=== PATIENT | female | born 2000 | race Caucasian/White ===

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

== ENCOUNTER 2018-01-27 15:03 | Emergency (ER) | payer BC | END 2018-01-27 17:07 | disposition home or self-care (01) | LOC: M ED 15:03 | DX: S09.90XA Unspecified injury of head, initial encounter (principal); S10.91XA Abrasion of unspecified part of neck, initial encounter; Y04.8XXA Assault by other bodily force, initial encounter; K58.9 Irritable bowel syndrome, unspecified; Z79.899 Other long term (current) drug therapy | CPT/HCPCS: 70450 ==

== ENCOUNTER → 2018-12-14 | Outpatient (REF) | payer BC ==
[~2018-12-14] MED LIST: CELE10TA PO; LINZ145C; NIKK1TAB
[2018-12-14 16:31] LABS: BASO % 0.3 % (0.0-1.0); EOS % 0.7 % (0.0-3.0); HEMATOCRIT 37.3 % (36.0-47.0); LYMPH # 1.8 10^3/uL (1.5-6.5); LYMPH % 31.6 % (24.0-44.0); MEAN CORPUSCULAR HEMOGLOBIN 27.9 pg (27.0-33.0); MEAN CORPUSCULAR HGB CONC 32.2 g/dl (32.0-36.5); MEAN CORPUSCULAR VOLUME 86.7 fl (80.0-96.0); MONO # 0.5 10^3/uL (0.0-0.8); MONO % 8.1 % (0.0-5.0); NEUTROPHILS # 3.4 10^3/uL (1.8-7.7); NEUTROPHILS % 59.1 % (36.0-66.0); PLATELET COUNT, AUTOMATED 169 10^3/uL (150-450); WHITE BLOOD COUNT 5.8 10^3/uL (4.0-10.0)
[2018-12-14 16:47] LABS: ALBUMIN 3.8 GM/DL (3.2-5.2); ALT/SGPT 32 U/L (12-78); BILIRUBIN,TOTAL 0.4 MG/DL (0.2-1.0); BLOOD UREA NITROGEN 8 MG/DL (7-18); CALCIUM LEVEL 9.4 MG/DL (8.5-10.1); CARBON DIOXIDE LEVEL 27 MEQ/L (21-32); CHLORIDE LEVEL 106 MEQ/L (98-107); CREATININE FOR GFR 0.61 MG/DL (0.55-1.30); FREE T4 1.01 NG/DL (0.78-1.33); GLUCOSE, FASTING 76 MG/DL (70-100); POTASSIUM SERUM 3.9 MEQ/L (3.5-5.1); SODIUM LEVEL 141 MEQ/L (136-145); THYROID STIMULATING HORMONE 0.796 uIU/ML (0.463-3.98); TOTAL PROTEIN 7.1 GM/DL (6.4-8.2)
== END ==
LOC: M SFHCLERA 12:22
PROVIDERS: ATTEND Nurse Practitioner Family
DX: R55 Syncope and collapse (principal)

== ENCOUNTER → 2021-07-26 | Outpatient (REF) | payer BC | LOC: M LAB REF 16:34 | PROVIDERS: ATTEND Physician Assistant Medical | DX: R30.0 Dysuria (principal) ==

== ENCOUNTER → 2022-01-03 | Outpatient (CLI) | payer BC ==
[2022-01-03 16:13] LABS: BASO % 0.5 % (0.0-1.0); EOS % 0.6 % (0.0-3.0); HEMATOCRIT 38.8 % (36.0-47.0); HEMOGLOBIN 12.5 g/dl (12.0-15.5); LYMPH # 1.7 10^3/uL (1.5-5.0); LYMPH % 26.2 % (24.0-44.0); MEAN CORPUSCULAR HGB CONC 32.2 g/dl (32.0-36.5); MONO # 0.5 10^3/uL (0.0-0.8); MONO % 8.5 % (2.0-8.0); NEUTROPHILS # 4.1 10^3/uL (1.5-8.5); NEUTROPHILS % 63.9 % (36.0-66.0); PLATELET COUNT, AUTOMATED 178 10^3/uL (150-450); RED BLOOD COUNT 4.46 10^6/uL (4.00-5.40); WHITE BLOOD COUNT 6.4 10^3/uL (4.0-10.0)
[2022-01-03 20:33] LABS: FREE T4 1.09 NG/DL (0.76-1.46); THYROID STIMULATING HORMONE 1.23 uIU/ML (0.358-3.740)
== END ==
LOC: M WUC 14:09
PROVIDERS: ATTEND Dermatology
DX: L65.9 Nonscarring hair loss, unspecified (principal)

== ENCOUNTER 2023-02-18 01:33 | Emergency (ER) | payer BC ==
[~2023-02-18] VITALS: Ht 172.7 cm; Wt 68.2 kg
[2023-02-18 01:33] VITALS: BP 115/82; TEMP 98.6; O2SAT 98
[2023-02-18 02:26] LABS: BASO % 0.4 % (0.0-1.0); EOS % 0.3 % (0.0-3.0); HEMATOCRIT 38.8 % (36.0-47.0); HEMOGLOBIN 12.5 g/dl (12.0-15.5); LYMPH # 1.7 10^3/uL (1.5-5.0); LYMPH % 24.8 % (24.0-44.0); MEAN CORPUSCULAR HEMOGLOBIN 27.5 pg (27.0-33.0); MEAN CORPUSCULAR HGB CONC 32.2 g/dl (32.0-36.5); MEAN CORPUSCULAR VOLUME 85.3 fl (80.0-96.0); MONO # 0.5 10^3/uL (0.0-0.8); MONO % 7.3 % (2.0-8.0); NEUTROPHILS # 4.6 10^3/uL (1.5-8.5); NEUTROPHILS % 66.9 % (36.0-66.0); PLATELET COUNT, AUTOMATED 185 10^3/uL (150-450); RED BLOOD COUNT 4.55 10^6/uL (4.00-5.40); WHITE BLOOD COUNT 6.8 10^3/uL (4.0-10.0)
[2023-02-18 02:43] LABS: LIPASE 30 U/L (12-53)
[2023-02-18 02:45] LABS: ALBUMIN 3.8 G/DL (3.2-5.2); ALKALINE PHOSPHATASE 46 U/L (46-116); ALT/SGPT 25 U/L (7.0-40); AST/SGOT 15 U/L (<34); BILIRUBIN,DIRECT 0.1 MG/DL (<0.4); BILIRUBIN,TOTAL 0.4 MG/DL (0.3-1.2); BLOOD UREA NITROGEN 8 MG/DL (9-23); CALCIUM LEVEL 9.7 MG/DL (8.5-10.1); CARBON DIOXIDE LEVEL 23 MMOL/L (20-31); CHLORIDE LEVEL 103 MMOL/L (98-107); CREATININE FOR GFR 0.64 MG/DL (0.55-1.30); GLOMERULAR FILTRATION RATE > 60.0 (>60); GLUCOSE, FASTING 93 MG/DL (60-100); POTASSIUM SERUM 3.6 MMOL/L (3.5-5.1); SODIUM LEVEL 138 MMOL/L (136-145); TOTAL PROTEIN 7.5 G/DL (5.7-8.2)
== END 2023-02-18 03:38 | disposition left against medical advice (07) ==
LOC: M ED 01:33
DX: Z53.21 Procedure and treatment not carried out due to patient leaving prior to being seen by health care provider (principal)

== ENCOUNTER → 2023-11-23 | Outpatient (CLI) | payer BC ==
[2023-11-23 15:04] LABS: BASO % 0.4 % (0.0-1.0); EOS % 0.7 % (0.0-3.0); HEMATOCRIT 37.7 % (36.0-47.0); HEMOGLOBIN 12.2 g/dl (12.0-15.5); LYMPH # 2.1 10^3/uL (1.5-5.0); LYMPH % 38.7 % (24.0-44.0); MEAN CORPUSCULAR HEMOGLOBIN 27.9 pg (27.0-33.0); MEAN CORPUSCULAR HGB CONC 32.4 g/dl (32.0-36.5); MEAN CORPUSCULAR VOLUME 86.3 fl (80.0-96.0); MONO # 0.5 10^3/uL (0.0-0.8); MONO % 8.4 % (2.0-8.0); NEUTROPHILS # 2.8 10^3/uL (1.5-8.5); NEUTROPHILS % 51.4 % (36.0-66.0); PLATELET COUNT, AUTOMATED 199 10^3/uL (150-450); RED BLOOD COUNT 4.37 10^6/uL (4.00-5.40); WHITE BLOOD COUNT 5.4 10^3/uL (4.0-10.0)
[2023-11-23 15:37] LABS: ESTRADIOL < 19.0 PG/ML; FERRITIN 11.5 NG/ML (7.3-270.7); FOLATE 14.7 NG/ML (>5.4); FREE T4 1.19 NG/DL (0.89-1.76); THYROID STIMULATING HORMONE 1.239 uIU/ML (0.55-4.78); THYROXINE (T4) 12.1 UG/DL (4.5-10.9); TOTAL 25(OH) VITAMIN D 15.3 NG/ML (20.0-100.0)
[2023-11-23 15:38] LABS: VITAMIN B12 LEVEL 297 PG/ML (211-911)
[2023-11-23 15:45] LABS: ALBUMIN 3.2 G/DL (3.2-5.2); ALKALINE PHOSPHATASE 39 U/L (46-116); ALT/SGPT 22 U/L (7.0-40); AST/SGOT 11 U/L (<34); BILIRUBIN,TOTAL 0.2 MG/DL (0.3-1.2); BLOOD UREA NITROGEN 9 MG/DL (9-23); CALCIUM LEVEL 8.9 MG/DL (8.5-10.1); CARBON DIOXIDE LEVEL 26 MMOL/L (20-31); CHLORIDE LEVEL 110 MMOL/L (98-107); CREATININE FOR GFR 0.67 MG/DL (0.55-1.30); GLOMERULAR FILTRATION RATE > 60.0 (>60); GLUCOSE, FASTING 82 MG/DL (60-100); IRON (FE) 26 UG/DL (50-170); PERCENT SATURATION 5.6 % (13.2-45.0); POTASSIUM SERUM 4.1 MMOL/L (3.5-5.1); SODIUM LEVEL 142 MMOL/L (136-145); TOTAL IRON BINDING CAPACITY 461 UG/DL (250-425); TOTAL PROTEIN 6.3 G/DL (5.7-8.2)
[2023-11-23 15:48] LABS: PROGESTERONE 0.25 NG/ML
[2023-11-23 15:50] LABS: FREE THYROXINE INDEX 2.4 % (1.3-4.8); T UPTAKE 19.9 % (22.5-37.0)
[2023-11-24 17:07] LABS: TESTOSTERONE FREE (DIRECT) 0.5 pg/mL (0.0-4.2)
== END ==
LOC: M WUC 10:33
PROVIDERS: ATTEND Registered Nurse
DX: R53.83 Other fatigue (principal)

== ENCOUNTER → 2025-03-22 | Outpatient (REF) | payer BC | LOC: M LAB REF 18:01 | DX: J02.9 Acute pharyngitis, unspecified (principal) ==

== ENCOUNTER 2025-05-23 19:58 | Emergency (ER) | payer BC ==
[~2025-05-23] VITALS: Ht 172.7 cm; Wt 58.2 kg
[2025-05-23] MEDS ORDERED: LORY1TAB2 PO (20:09)
[2025-05-23] MEDS ORDERED: CITA40TA7 PO (20:09)
[2025-05-23] MEDS: ONDANSETRON 4MG/2ML VIAL IV ONE (21:27)
[2025-05-23] MEDS: NS (Normal Saline) 0.9% 1,000 ML IV ONE (21:28)
[2025-05-23 21:37] LABS: BASO # 0.0 10^3/uL (0.0-0.2); BASO % 0.1 % (0.0-1.0); EOS # 0.0 10^3/uL (0.0-0.5); EOS % 0.0 % (0.0-3.0); LYMPH # 1.0 10^3/uL (1.5-5.0); LYMPH % 6.4 % (24.0-44.0); MONO # 1.3 10^3/uL (0.0-0.8); MONO % 8.0 % (2.0-8.0); NEUTROPHILS # 13.3 10^3/uL (1.5-8.5); NEUTROPHILS % 85.1 % (36.0-66.0); PLATELET COUNT, AUTOMATED 230 10^3/uL (150-450)
[2025-05-23 22:10] LABS: ALT/SGPT 29 U/L (7.0-40); AST/SGOT 24 U/L (<34); CALCIUM LEVEL 9.0 MG/DL (8.5-10.1); CARBON DIOXIDE LEVEL 24 MMOL/L (20-31); CHLORIDE LEVEL 106 MMOL/L (98-107); CREATININE FOR GFR 0.74 MG/DL (0.55-1.30); GLOMERULAR FILTRATION RATE > 90.0 (>60); POTASSIUM SERUM 4.1 MMOL/L (3.5-5.1); SODIUM LEVEL 143 MMOL/L (136-145)
[2025-05-23 22:28] LABS: HCG, SERUM QUALITATIVE NEGATIVE (NEGATIVE)
[2025-05-24] MEDS ORDERED: REGL10TA6 PO (00:03)
[2025-05-24] MEDS ORDERED: ONDA-282 PO (00:03)
[2025-05-24 00:16] VITALS: BP 115/66; TEMP 100.1; O2SAT 100
[2025-05-24] MEDS ORDERED: ONDANSETRON 4MG/2ML VIAL IV ONE (01:00)
== END 2025-05-24 00:20 | disposition home or self-care (01) ==
LOC: M ED 19:58
DX: K52.9 Noninfective gastroenteritis and colitis, unspecified (principal); F32.9 Major depressive disorder, single episode, unspecified; Z79.899 Other long term (current) drug therapy
CPT/HCPCS: 80048; 80076; 83690; 84703; 85025; 87486; 87581; 87633; 87798; 93041; 96361; 96374; 96375; 99284; J2405; J2765

== ENCOUNTER 2025-05-25 16:20 | Observation (INO) | payer BC ==
[~2025-05-25] VITALS: Ht 172.7 cm; Wt 63.6 kg
[~2025-05-25 16:20] MED LIST changes: +CITA40TA7 PO; +LORY1TAB2 PO; +ONDA-282 PO; +REGL10TA6 PO
[2025-05-25] MEDS: NS (Normal Saline) 0.9% 1,000 ML IV ONE (17:06)
[2025-05-25 17:16] LABS: BASO # 0.1 10^3/uL (0.0-0.2); BASO % 0.4 % (0.0-1.0); EOS # 0.0 10^3/uL (0.0-0.5); EOS % 0.1 % (0.0-3.0); LYMPH # 2.0 10^3/uL (1.5-5.0); LYMPH % 15.7 % (24.0-44.0); MONO # 0.9 10^3/uL (0.0-0.8); MONO % 7.0 % (2.0-8.0); NEUTROPHILS # 9.5 10^3/uL (1.5-8.5); NEUTROPHILS % 76.2 % (36.0-66.0); PLATELET COUNT, AUTOMATED 258 10^3/uL (150-450)
[2025-05-25 17:53] LABS: ALT/SGPT 37 U/L (7.0-40); AST/SGOT 28 U/L (<34); CALCIUM LEVEL 8.9 MG/DL (8.5-10.1); CARBON DIOXIDE LEVEL 20 MMOL/L (20-31); CHLORIDE LEVEL 104 MMOL/L (98-107); CREATININE FOR GFR 0.63 MG/DL (0.55-1.30); GLOMERULAR FILTRATION RATE > 90.0 (>60); POTASSIUM SERUM 3.2 MMOL/L (3.5-5.1); SODIUM LEVEL 140 MMOL/L (136-145)
[2025-05-25 18:36] LABS: MAGNESIUM LEVEL 1.7 MG/DL (1.8-2.4)
[2025-05-25] MEDS ORDERED: ISOVUE-370 76% 100 ML VIAL As Ordered ONE (18:42)
[2025-05-25] MEDS ORDERED: ACETAMINOPHEN 325 MG TAB PO PRN (21:40)
[2025-05-25] MEDS: NS (Normal Saline) 0.9% 1,000 ML IV SCH (22:23)
[2025-05-25 22:25] LABS: HCG, SERUM QUALITATIVE NEGATIVE (NEGATIVE)
[2025-05-25] MEDS: MAG SULF 1GM/100ML (MAG RUN) 1 GM in IV 1 EA IV SCH (22:29)
[2025-05-26 00:40] VITALS: BP 136/90; TEMP 98.4; O2SAT 99
[2025-05-26] MEDS: KCL 10MEQ/100ML SWI (KRUN) 10 MEQ in IV 1 EA IV ONE (03:17)
[2025-05-26 08:00] VITALS: BP 112/70; TEMP 98.9; O2SAT 98
[2025-05-26 08:13] LABS: PLATELET COUNT, AUTOMATED 221 10^3/uL (150-450)
[2025-05-26 08:39] LABS: ALT/SGPT 30 U/L (7.0-40); AST/SGOT 24 U/L (<34); CALCIUM LEVEL 7.6 MG/DL (8.5-10.1); CARBON DIOXIDE LEVEL 22 MMOL/L (20-31); CHLORIDE LEVEL 107 MMOL/L (98-107); CREATININE FOR GFR 0.56 MG/DL (0.55-1.30); GLOMERULAR FILTRATION RATE > 90.0 (>60); MAGNESIUM LEVEL 2.2 MG/DL (1.8-2.4); POTASSIUM SERUM 3.5 MMOL/L (3.5-5.1); SODIUM LEVEL 140 MMOL/L (136-145)
[2025-05-26] MEDS: PANTOPRAZOLE 40MG VIAL IV SCH (09:38)
[2025-05-26] MEDS: ENOXAPARIN 40 MG/0.4 ML SYRINGE (J1650 PER 10MG) SC SCH (09:39)
[2025-05-26] MEDS ORDERED: HOME MED LIST COMPLETE! XX SCH (11:50)
[2025-05-26] MEDS ORDERED: METO5TAB2 PO (12:48)
[2025-05-26] MEDS: POTASSIUM CHLORIDE 10MEQ SR TABLET PO ONE (14:25)
[2025-05-26] MEDS: D5W/LR 1,000 ML IV SCH (14:25)
[2025-05-26 16:00] VITALS: BP 132/79; TEMP 98.9; O2SAT 100
[2025-05-26 20:00] VITALS: BP 113/66; TEMP 100.2; O2SAT 98
[2025-05-26] MEDS: PROCHLORPERAZINE 5MG TAB PO PRN (21:05)
[2025-05-27 04:16] VITALS: BP 110/72; TEMP 99.2; O2SAT 98
[2025-05-27 08:00] VITALS: BP 118/72; TEMP 98.2; O2SAT 98
[2025-05-27 08:41] LABS: PLATELET COUNT, AUTOMATED 201 10^3/uL (150-450)
[2025-05-27 09:17] LABS: CALCIUM LEVEL 8.0 MG/DL (8.5-10.1); CARBON DIOXIDE LEVEL 24 MMOL/L (20-31); CHLORIDE LEVEL 109 MMOL/L (98-107); CREATININE FOR GFR 0.57 MG/DL (0.55-1.30); GLOMERULAR FILTRATION RATE > 90.0 (>60); MAGNESIUM LEVEL 1.8 MG/DL (1.8-2.4); POTASSIUM SERUM 3.7 MMOL/L (3.5-5.1); SODIUM LEVEL 145 MMOL/L (136-145)
[2025-05-27] MEDS: METOCLOPRAMIDE 5 MG TAB PO PRN (12:17)
== END 2025-05-27 14:25 | disposition home or self-care (01) ==
LOC: M ED 16:20 → M ED INP 16:21 → M PED 05-26 00:38
PROVIDERS: ADMIT Internal Medicine; ATTEND Internal Medicine
DX: A08.4 Viral intestinal infection, unspecified (principal); E83.42 Hypomagnesemia; E87.6 Hypokalemia; E86.0 Dehydration; Z79.899 Other long term (current) drug therapy
CPT/HCPCS: 36415; 71045; 74177; 80048; 80053; 80076; 83690; 83735; 84703; 85025; 85027; 87507; 93005; 96361; 96372; 96374; 96375; 96376; 99285; J1650; J2060; J2470; J2550; J2765; J3475; Q9967